=== PATIENT | male | born 1930 | race Caucasian/White ===

== ENCOUNTER 2017-03-20 09:56 | Emergency (ER) | payer MEDICARE, MEDICAID ==
[~2017-03-20] VITALS: Ht 167.6 cm; Wt 52.3 kg
[2017-03-20] MEDS ORDERED: IBUPROFEN 800 MG TABLET PO ONE (12:00)
[2017-03-20 12:22] LABS: RAPID GROUP A STREP NEGATIVE (NEGATIVE)
[2017-03-20 12:27] VITALS: BP 120/70
[2017-03-20 12:32] LABS: INFLUENZA TYPE A NEGATIVE FOR TYPE A (NEGATIVE); INFLUENZA TYPE B NEGATIVE FOR TYPE B (NEGATIVE)
== END 2017-03-20 13:13 | disposition home or self-care (01) ==
LOC: EMS 10:00
DX: J02.8 Acute pharyngitis due to other specified organisms (principal); B97.89 Other viral agents as the cause of diseases classified elsewhere; M79.1 Myalgia; Z88.0 Allergy status to penicillin
CPT/HCPCS: 87430; 87804; 99284